=== PATIENT | female | born 1970 | race Caucasian/White ===

== ENCOUNTER 2020-10-02 10:14 | Emergency (ER) | payer BC ==
[2020-10-02 12:15] LABS: HEMOGLOBIN 13.9 gm/dl (12.3-15.3); RED BLOOD COUNT 4.66 M/UL (4.00-5.10); WHITE BLOOD COUNT 9.9 K/UL (4.5-11.0)
[2020-10-02 12:45] LABS: BUN/CREATININE RATIO 15 (0-10)
[2020-10-02] MEDS ORDERED: ZITHROMAX250 MG PO (14:51)
[2020-10-02] MEDS ORDERED: ZOFRAN4 MG PO (14:51)
[2020-10-02] MEDS ORDERED: TESSALON PERLE100 MG PO (14:51)
== END 2020-10-02 15:16 | disposition home or self-care (01) ==
LOC: ER1 10:14
PROVIDERS: Physician Assistant Medical
DX: U07.1 COVID-19 (principal); Z88.8 Allergy status to other drugs, medicaments and biological substances
CPT/HCPCS: 71045; 80053; 81001; 83605; 85025

== ENCOUNTER 2020-10-04 07:17 | Inpatient (IN) | payer BC ==
[~2020-10-04] VITALS: Ht 160 cm; Wt 81.6 kg
[~2020-10-04 07:17] MED LIST: TESSALON PERLE100 MG PO; ZITHROMAX250 MG PO; ZOFRAN4 MG PO
[2020-10-04 08:23] LABS: HEMOGLOBIN 13.4 gm/dl (12.3-15.3); RED BLOOD COUNT 4.51 M/UL (4.00-5.10)
[2020-10-04 08:26] LABS: WHITE BLOOD COUNT 14.7 K/UL (4.5-11.0)
[2020-10-04 08:49] LABS: BUN/CREATININE RATIO 15 (0-10)
[2020-10-04] MEDS ORDERED: PERIDEX15 ML MT (11:35)
[2020-10-04] MEDS ORDERED: ORAZINC220 MG PO (11:40)
[2020-10-04] MEDS ORDERED: VITAMIN D325 MCG PO (11:41)
[2020-10-05 04:04] LABS: WHITE BLOOD COUNT 12.5 K/UL (4.5-11.0)
[2020-10-05 04:06] LABS: HEMOGLOBIN 11.4 gm/dl (12.3-15.3); RED BLOOD COUNT 3.86 M/UL (4.00-5.10)
[2020-10-05 04:23] LABS: BUN/CREATININE RATIO 17 (0-10)
[2020-10-06 05:00] LABS: HEMOGLOBIN 11.3 gm/dl (12.3-15.3); RED BLOOD COUNT 3.84 M/UL (4.00-5.10); WHITE BLOOD COUNT 12.1 K/UL (4.5-11.0)
[2020-10-06 05:54] LABS: BUN/CREATININE RATIO 23 (0-10)
[2020-10-07 04:05] LABS: HEMOGLOBIN 11.4 gm/dl (12.3-15.3); RED BLOOD COUNT 3.87 M/UL (4.00-5.10); WHITE BLOOD COUNT 9.3 K/UL (4.5-11.0)
[2020-10-07 04:26] LABS: BUN/CREATININE RATIO 27 (0-10)
[2020-10-09 04:48] LABS: HEMOGLOBIN 13.9 gm/dl (12.3-15.3); RED BLOOD COUNT 4.64 M/UL (4.00-5.10); WHITE BLOOD COUNT 15.3 K/UL (4.5-11.0)
[2020-10-09 04:58] LABS: BUN/CREATININE RATIO 30 (0-10)
[2020-10-10] MEDS ORDERED: DECADRON6 MG PO (11:09)
== END 2020-10-10 13:51 | disposition home or self-care (01) | DRG 177 ==
LOC: ER1 07:17 → ZEROF 09:00 → MED SURG 4 09:00
PROVIDERS: Emergency Medicine; ADMIT Internal Medicine Infectious Disease
PROC: 8E0ZXY6 Isolation (ICD-10-PCS; principal; 2020-10-04)
PROC: XW13325 Transfusion of Convalescent Plasma (Nonautologous) into Peripheral Vein, Percutaneous Approach, New Technology Group 5 (ICD-10-PCS; 2020-10-04)
PROC: XW033E5 Introduction of Remdesivir Anti-infective into Peripheral Vein, Percutaneous Approach, New Technology Group 5 (ICD-10-PCS; 2020-10-05)
DX: U07.1 COVID-19 (principal); J12.82 Pneumonia due to coronavirus disease 2019; J96.01 Acute respiratory failure with hypoxia; E87.6 Hypokalemia; R00.0 Tachycardia, unspecified; Z90.49 Acquired absence of other specified parts of digestive tract; Z90.710 Acquired absence of both cervix and uterus
CPT/HCPCS: 36600; 71045; 80053; 80202; 81001; 82550; 82553; 82803; 83605; 83735; 83874; 84484; 85025; 85379; 86900; 86901; 86927; 87040; 87077; 87086; 87186; 93005; 96365; 96366; 96367; 96372; 96375; 96376; 99284; 99285; J0696; J1100; J1650; J1940; J3370; J7030; J7070; U0002

== ENCOUNTER 2020-10-21 14:01 | Emergency (ER) | payer BC ==
[~2020-10-21 14:01] MED LIST changes: +DECADRON6 MG PO; +ORAZINC220 MG PO; +PERIDEX15 ML MT; +VITAMIN D325 MCG PO
[2020-10-21 14:52] LABS: HEMOGLOBIN 13.9 gm/dl (12.3-15.3); RED BLOOD COUNT 4.57 M/UL (4.00-5.10); WHITE BLOOD COUNT 18.3 K/UL (4.5-11.0)
[2020-10-21 15:20] LABS: BUN/CREATININE RATIO 29 (0-10)
== END 2020-10-21 16:45 | disposition short-term general hospital (02) ==
LOC: ER1 14:01
PROVIDERS: Emergency Medicine
DX: G51.0 Bell's palsy (principal); G93.6 Cerebral edema; D72.829 Elevated white blood cell count, unspecified; H92.02 Otalgia, left ear; R00.0 Tachycardia, unspecified; I10 Essential (primary) hypertension; Z86.16 Personal history of COVID-19; Z88.8 Allergy status to other drugs, medicaments and biological substances
CPT/HCPCS: 36415; 70450; 71045; 80053; 82550; 82553; 83874; 84484; 85025; 85610; 85730; 93005; 99285

== ENCOUNTER → 2020-11-02 | Outpatient (CLI) | payer BC ==
[~2020-11-02] MED LIST changes: +ASPIRIN CHEWABL81 MG PO; +ASPIRIN81 MG PO; +LIPITOR40 MG PO; +LIPITOR80 MG PO; +LOPRESSOR 50 MG50 MG PO; +MECLIZINE HCL25 MG PO; +MYCOSTATIN100000 UTS PO; +TRANSDERM-SCOP1 EACH TD; +VALACYCLOVIR1000 MG PO; +ZOFRAN ODT 4 MG4 MG PO
== END ==
LOC: ECHO 10-27 13:00
DX: I63.9 Cerebral infarction, unspecified (principal)
CPT/HCPCS: ECHO; 93306

== ENCOUNTER 2020-11-06 13:59 | Inpatient (IN) | payer BC ==
[~2020-11-06] VITALS: Ht 160 cm; Wt 81.6 kg
[~2020-11-06 13:59] MED LIST changes: -ASPIRIN CHEWABL81 MG PO; -ASPIRIN81 MG PO; -LIPITOR40 MG PO; -LIPITOR80 MG PO; -LOPRESSOR 50 MG50 MG PO; -MECLIZINE HCL25 MG PO; -MYCOSTATIN100000 UTS PO; -TRANSDERM-SCOP1 EACH TD; -VALACYCLOVIR1000 MG PO; -ZOFRAN ODT 4 MG4 MG PO
[2020-11-06 15:21] LABS: HEMOGLOBIN 14.5 gm/dl (12.3-15.3); RED BLOOD COUNT 4.79 M/UL (4.00-5.10); WHITE BLOOD COUNT 20.1 K/UL (4.5-11.0)
[2020-11-06 15:34] LABS: BUN/CREATININE RATIO 29 (0-10)
[2020-11-06 18:41] LABS: CRYPTOCOCCUS NEOFORMANS/GATTII Not Detected (Negative); CYTOMEGALOVIRUS Not Detected (Negative); ENTEROVIRUS Not Detected (Negative); ESCHERICHIA COLI K1 Not Detected (Negative); HAEMOPHILUS INFLUENZAE Not Detected (Negative); HERPES SIMPLEX VIRUS 1 Not Detected (Negative); HERPES SIMPLEX VIRUS 2 Not Detected (Negative); HUMAN HERPESVIRUS 6 Not Detected (Negative); HUMAN PARECHOVIRUS Not Detected (Negative); LISTERIA MONOCYTOGENES Not Detected (Negative); NEISERRIA MENINGITIDIS Not Detected (Negative); STREPTOCOCCUS AGALACTIAE Not Detected (Negative); STREPTOCOCCUS PNEUMONIAE Not Detected (Negative)
[2020-11-06 19:00] LABS: GLUCOSE,CSF 67 mg/dL (50-80); TOTAL PROTEIN,CSF 67 mg/dL (20-45)
[2020-11-06 19:29] LABS: RBC (AUTOMATED) 300 10^6 (0); WBC (AUTOMATED 43 10^3 (0-5)
[2020-11-06 19:32] LABS: WBC (AUTOMATED 52 10^3 (0-5)
[2020-11-06 20:17] LABS: VARICELLA ZOSTER VIRUS DETECTED (Negative)
[2020-11-06] MEDS ORDERED: LIPITOR80 MG PO (22:07)
[2020-11-06] MEDS ORDERED: VALACYCLOVIR1000 MG PO (22:07)
[2020-11-06] MEDS ORDERED: ASPIRIN CHEWABL81 MG PO (22:07)
[2020-11-07 06:39] LABS: HEMOGLOBIN 12.3 gm/dl (12.3-15.3); RED BLOOD COUNT 4.01 M/UL (4.00-5.10); WHITE BLOOD COUNT 12.7 K/UL (4.5-11.0)
[2020-11-07 07:02] LABS: BUN/CREATININE RATIO 25 (0-10)
[2020-11-08 09:11] LABS: HEMOGLOBIN 11.9 gm/dl (12.3-15.3); RED BLOOD COUNT 4.03 M/UL (4.00-5.10); WHITE BLOOD COUNT 11.4 K/UL (4.5-11.0)
[2020-11-08 09:24] LABS: BUN/CREATININE RATIO 11 (0-10)
[2020-11-09 02:54] LABS: HEMOGLOBIN 11.8 gm/dl (12.3-15.3); RED BLOOD COUNT 3.93 M/UL (4.00-5.10); WHITE BLOOD COUNT 10.1 K/UL (4.5-11.0)
[2020-11-09 04:08] LABS: BUN/CREATININE RATIO 8 (0-10)
[2020-11-10 03:16] LABS: HEMOGLOBIN 11.3 gm/dl (12.3-15.3); RED BLOOD COUNT 3.72 M/UL (4.00-5.10); WHITE BLOOD COUNT 10.1 K/UL (4.5-11.0)
[2020-11-10 03:57] LABS: BUN/CREATININE RATIO 14 (0-10)
[2020-11-12 07:24] LABS: BUN/CREATININE RATIO 16 (0-10)
[2020-11-15 02:55] LABS: HEMOGLOBIN 11.7 gm/dl (12.3-15.3); RED BLOOD COUNT 3.85 M/UL (4.00-5.10)
--- NOTE | 2020-11-15 11:58 | NUR ---
PATIENT FAMILY CALLED GISSEL ROSENTHAL AT 1130. PATIENT WAS SITTING IN THE CHAIR UPON ARRIVAL TO THE ROOM AND WAS DISORIENTED. . PER FAMILY PATIENT LOST A PULSE AND WAS NOT BREATHING FOR 30 SECONDS LEADING HER TO CALL THE CODE BLUE. STAFF RESPONDED AND CODE CART WAS BROUGHT TO THE ROOM. WHEN STAFF ARRIVED PATIENT HAD A PULSE AND WAS RESPONSIVE. PATIENT WAS TRANSFERED TO THE BED. VITAL SIGNS WERE OBTAINED. 134/92 HR: 106 RR:20 98% ON ROOM AIR. GLUCOSE WAS CHECKED IT WAS 127. PATIENT WAS PALE BUT REGAINING COLOR. PATIENT FAMILY THINKS SHE MAY HAVE HAD A SEIZURE. PATIENT DOES NOT HAVE A HISTORY OF SEIZURES. NEW DIAGNOSIS OF BARBI CANELA SYNDROME. PATIENT HAS NOT BEEN OUT OF THE BED IN A LITTLE WHILE. SHE MAY HAVE HAD A SYNCOPAL EPISODE. FAMILY IS REQUESTING TO MOVE THE PATIENT TO . DR. TUCKER IS WORKING ON MOVING HER TO A LARGER MEDICAL FACILITY. PATIENT WAS LEFT ON TELE AND VITAL SIGNS STABLE. DENIES CHEST PAIN. PER THE PATIENT SHE SAYS SHE GOT NAUSEOUS AND DIZZY.
--- NOTE | 2020-11-15 11:58 | NUR ---
dr. ware verified that patient is not on isolation for meningitis.
--- NOTE | 2020-11-15 12:26 | NUR ---
SINCE CODE BLUE PATIENT IS ALERT AND RESPONDING WELL. NO NEW DEFICITS.
--- NOTE | 2020-11-15 18:28 | NUR ---
AWAITING FOR BED AT [facility]
--- NOTE | 2020-11-15 23:48 | NUR ---
DURING SHIFT REPORT ON THE PATIENT IT WAS SAID THAT HER FAMILY MEMBER CALLED A CODE BLUE EARLIER BECAUSE SHE HAD NO BREATHING OR PULSE FOR 30 SECONDS. WHEN I PEEKED IN THE ROOM SHE HAD 3 FAMILY MEMBERS WITH HER, THE PATIENT WAS LYING IN BED IN NO DISTRESS. I TOLD HER MY NAME AND THAT I WOULD BE HER NURSE VANCE. AT THAT TIME THE PATIENT'S SISTER ASK THAT THE IV PUMP BE CHANGED DUE TO THE INTERNAL BATTERY NEEDING RESET AND IT'S BEEPING. I EXPLAINED THAT HER PUMP WAS CHANGED OUT YESTERDAY ON , AND AGAIN THIS MORNING BEFORE I LEFT. I EXPLAINED THAT I COULD BE RESET AND I WOULD TRY TO GET IT RESET FOR HER. SHE SAID NO HURRY, JUST WHEN YOU GET TIME. WHEN I WENT IN TO SPEAK WITH THE PATIENT LATER, I ASK HER TO TELL ME WHAT HAPPENED. THE PATIENT SAID THAT SHE HAD A SHOWER AND HER SISTER WAS BRAIDING HER HAIR, SHE GOT NAUSEATED, DIZZY AND DOESN'T REMEMBER ANYTHING UNTIL THE NURSE WAS REMOVING THE BACKBOARD OUT FROM UNDER HER. SHE SAID SHE HAD BEEN UP TO THE BATHROOM SINCE AND WAS JUST DIZZY AND SLEEPY AND HAD SLEPT FOR A LONG TIME AFTERWARD. THE SISTER STATED, "I WAS BRAIDING HER HAIR WHEN HER HEAD WENT BACK AND SHE STOPPED BREATHING AND HAD NO PULSE FOR 30 SECONDS. I PUSHED THE CODE BLUE BUTTON AND EVERYTHING AND NOBODY DID ANYTHING, AND SHE HASN'T EVEN SEEN A DOCTOR." I EXPLAINED THAT I WAS TOLD DR. TAWANDA MCMANUS CAME. SHE THEN SAID, "HE CAME IN THE ROOM AND I WAS ALL UPSET FROM THE ADRENALINE LLANES THAT I SCREAMED, I WANT HER TRANFERRED OUT OF HERE NOW! SHE NEEDS NEUROLOGY."
--- NOTE | 2020-11-16 01:59 | NUR ---
ASSESSMENT: PT IS ALERT AND ORIENTED X4, NO WEAKNESS OF UPPER OR LOWER EXTREMITIES NOTED AND VITAL SIGNS WITHIN NORMAL RANGE. LEFT SIDE OF THE FACE IS DRAWN AND FLUSHED BUT NO WARMER THAN THE RIGHT SIDE. PT WILL BE GOING FOR A CT OF THE HEAD PER DR. GISSELLE MADRIGAL
[2020-11-16] MEDS ORDERED: MYCOSTATIN100000 UTS PO ×2 (10:56→11:26)
[2020-11-16] MEDS ORDERED: MECLIZINE HCL25 MG PO ×2 (10:56→11:26)
[2020-11-16] MEDS ORDERED: LOPRESSOR 50 MG50 MG PO ×2 (10:56→11:26)
[2020-11-16] MEDS ORDERED: LIPITOR40 MG PO (10:56)
[2020-11-16] MEDS ORDERED: TRANSDERM-SCOP1 EACH TD ×2 (10:56→11:26)
[2020-11-16] MEDS ORDERED: ASPIRIN81 MG PO (11:26)
[2020-11-16] MEDS ORDERED: ZOFRAN ODT 4 MG4 MG PO (11:26)
--- NOTE | 2020-11-16 12:31 | NUR ---
REPORT CALLED TO AKTINA AT [facility]
== END 2020-11-16 12:34 | disposition home health service (06) | DRG 75 ==
LOC: ER1 13:59 → CDU 20:57 → MED SURG 4 20:57
PROVIDERS: Internal Medicine; Internal Medicine Infectious Disease; Physician Assistant Medical; ADMIT Internal Medicine
PROC: 009U3ZX Drainage of Spinal Canal, Percutaneous Approach, Diagnostic (ICD-10-PCS; principal; 2020-11-06)
PROC: 8E0ZXY6 Isolation (ICD-10-PCS; 2020-11-07)
PROC: 02HV33Z Insertion of Infusion Device into Superior Vena Cava, Percutaneous Approach (ICD-10-PCS; 2020-11-13)
PROC: B548ZZA Ultrasonography of Superior Vena Cava, Guidance (ICD-10-PCS; 2020-11-13)
DX: B02.1 Zoster meningitis (principal); N17.9 Acute kidney failure, unspecified; R65.10 Systemic inflammatory response syndrome (SIRS) of non-infectious origin without acute organ dysfunction; B02.21 Postherpetic geniculate ganglionitis; G51.0 Bell's palsy; R42 Dizziness and giddiness; R00.0 Tachycardia, unspecified; Z86.73 Personal history of transient ischemic attack (TIA), and cerebral infarction without residual deficits; Z79.899 Other long term (current) drug therapy; Z79.82 Long term (current) use of aspirin; Z86.16 Personal history of COVID-19; Z88.8 Allergy status to other drugs, medicaments and biological substances; Z90.710 Acquired absence of both cervix and uterus; Z90.49 Acquired absence of other specified parts of digestive tract; D72.829 Elevated white blood cell count, unspecified; G03.0 Nonpyogenic meningitis; F32.9 Major depressive disorder, single episode, unspecified; R55 Syncope and collapse
CPT/HCPCS: 36415; 70450; 70460; 70551; 71045; 80048; 80053; 81001; 82550; 82553; 82945; 82962; 83605; 83735; 83874; 84157; 84484; 85025; 85652; 86140; 87040; 87070; 87205; 87483; 89051; 93005; 96365; 96375; 96376; 97162; 99285; J0133; J1650; J2405; J3360; J3480; J7030; Q9963; U0002

== ENCOUNTER 2021-06-12 17:50 | Emergency (ER) | payer OTHER ==
[~2021-06-12 17:50] MED LIST changes: +ASPIRIN CHEWABL81 MG PO; +ASPIRIN81 MG PO; +LIPITOR40 MG PO; +LIPITOR80 MG PO; +LOPRESSOR 50 MG50 MG PO; +MECLIZINE HCL25 MG PO; +MYCOSTATIN100000 UTS PO; +TRANSDERM-SCOP1 EACH TD; +VALACYCLOVIR1000 MG PO; +ZOFRAN ODT 4 MG4 MG PO
== END 2021-06-12 20:01 | disposition home or self-care (01) ==
LOC: ER1 17:50
DX: S16.1XXA Strain of muscle, fascia and tendon at neck level, initial encounter (principal); S46.912A Strain of unspecified muscle, fascia and tendon at shoulder and upper arm level, left arm, initial encounter; I10 Essential (primary) hypertension; V49.40XA Driver injured in collision with unspecified motor vehicles in traffic accident, initial encounter; Y92.410 Unspecified street and highway as the place of occurrence of the external cause
CPT/HCPCS: 71045; 72125; 73030; 99284

== ENCOUNTER 2021-12-26 19:18 | Emergency (ER) | payer BC ==
[2021-12-26 20:29] LABS: RED BLOOD COUNT 4.63 M/UL (4.00-5.10); WHITE BLOOD COUNT 15.5 K/UL (4.5-11.0)
[2021-12-26 21:05] LABS: BUN/CREATININE RATIO 13 (0-10)
[2021-12-26] MEDS ORDERED: ZOFRAN ODT 4 MG4 MG GT (22:48)
== END 2021-12-26 23:40 | disposition home or self-care (01) ==
LOC: ER1 19:18
PROVIDERS: Nurse Practitioner
DX: R19.7 Diarrhea, unspecified (principal); R11.2 Nausea with vomiting, unspecified; I10 Essential (primary) hypertension; E78.5 Hyperlipidemia, unspecified; Z20.822 Contact with and (suspected) exposure to COVID-19; E11.9 Type 2 diabetes mellitus without complications; Z88.8 Allergy status to other drugs, medicaments and biological substances
CPT/HCPCS: 0240U; 71045; 80053; 81001; 82150; 82550; 82553; 83690; 84484; 85025; 87086; 93005; 96374; 99284; J2405; J7030; J7120